=== PATIENT | female | born 1970 | race Caucasian/White ===

== ENCOUNTER 2022-08-02 06:51 | Day surgery (SDC) | payer OTHER ==
[2022-07-31 12:34] LABS: COVID AG,FIA SOURCE NASOPHARYNGEAL
[~2022-08-02] VITALS: Ht 172.7 cm; Wt 178.2 kg
[~2022-08-02 06:51] MED LIST: ARMO250T6 PO; BETA50CR5 TP; DULO20CA71 PO; GABA-529 PO; HYDR200T38 PO; HYDR30CR3 TP; LEVO137T2 PO; LOSA100T58 PO; METO50 PO; OMEP20 PO
[2022-08-02] MEDS ORDERED: PROPOFOL 1% 20 ML VIAL IVP ONE (06:52)
[2022-08-02] MEDS ORDERED: SODIUM CHLORIDE 0.9% 1,000 ML IV ONE (07:00)
[2022-08-02] MEDS ORDERED: ONDA-104 PO (07:26)
[2022-08-02] MEDS ORDERED: OXYGEN THERAPY IH SCH (09:15)
== END 2022-08-02 10:25 | disposition home or self-care (01) ==
LOC: SURGERY 06:51
PROVIDERS: ATTEND Specialist
DX: R19.7 Diarrhea, unspecified (principal); D12.5 Benign neoplasm of sigmoid colon; Z79.899 Other long term (current) drug therapy; Z20.822 Contact with and (suspected) exposure to COVID-19; I10 Essential (primary) hypertension; E03.9 Hypothyroidism, unspecified; Z98.890 Other specified postprocedural states; M32.9 Systemic lupus erythematosus, unspecified; Z83.79 Family history of other diseases of the digestive system; Z80.3 Family history of malignant neoplasm of breast
CPT/HCPCS: 87426; 93005; 45385; 45380; 88305; C9803; C1769; J2704